=== PATIENT | female | born 2000 | race Caucasian/White ===

== ENCOUNTER 2020-08-04 21:51 | Outpatient (CLI) | payer BC, OTHER ==
[2020-08-04 22:55] LABS: APPEARANCE,URINE CLEAR; BILIRUBIN,URINE NEGATIVE (NEGATIVE); COLOR,URINE STRAW; GLUCOSE, URINE NEGATIVE (NEGATIVE); KETONES,URINE NEGATIVE (NEGATIVE); LEUKOCYTE ESTERASE,URINE NEGATIVE (NEGATIVE); NITRITE,URINE NEGATIVE (NEGATIVE); PROTEIN,URINE NEGATIVE (NEGATIVE); URINE SPECIFIC GRAVITY 1.001; UROBILINOGEN,URINE NEGATIVE mg/dL (<2.0)
[2020-08-04 23:08] LABS: URINE AMPHETAMINES SCREEN NEGATIVE; URINE BARBITURATES SCREEN NEGATIVE; URINE BENZODIAZEPINES SCREEN NEGATIVE; URINE COCAINE SCREEN NEGATIVE; URINE MARIJUANA (THC) SCREEN NEGATIVE; URINE METHADONE SCREEN NEGATIVE; URINE PHENCYCLIDINE SCREEN NEGATIVE
--- NOTE | 2020-08-04 23:28 | Non Stress Test Report ---
Non Stress Test Datetime Report Generated by CPN: 08/04/2020 23:28 DEMOGRAPHIC EGA NST: 36.0 INDICATION Indication for Study (NST) Other: labor check VITAL SIGNS Temperature - NST: 98.0 Pulse - NST: 97 RESP - NST: 16 NBPSYS NST: 111 NBPDIA NST: 67 MONITORING Monitor Explained: Monitor Explained; Test Explained; Patient Verbalized Understanding Time on Monitor: 08/04/2020 22:37 Time off Monitor: 08/04/2020 23:14 NST Duration: 37 NST INTERVENTIONS NST Interventions: None Physician Notified NST: Dr Ton BABY A: [id number] BABY A Movement : Present Contraction Frequency : none FHR Baseline : 135 Accelerations : 15X15 Decelerations : None Variability : Moderate 6-25bpm NST Review: Meets Criteria for Reactive NST NST Review and Verified By : Surinder Escobedo RN NST Results: Reactive NST REPORT Report Trigger: Send Report
== END 2020-08-04 23:21 | disposition home or self-care (01) ==
LOC: EDSTATUS 22:07 → LC 22:09
PROVIDERS: ATTEND Obstetrics & Gynecology
DX: O36.8130 Decreased fetal movements, third trimester, not applicable or unspecified (principal); Z3A.36 36 weeks gestation of pregnancy; Z02.83 Encounter for blood-alcohol and blood-drug test
CPT/HCPCS: 59025; 80307; 81001

== ENCOUNTER 2020-08-27 17:24 | Outpatient (CLI) | payer BC, OTHER ==
--- NOTE | 2020-08-27 18:35 | Non Stress Test Report ---
Non Stress Test Datetime Report Generated by CPN: 08/27/2020 18:34 DEMOGRAPHIC EGA NST: 39.2 INDICATION Indication for Study (NST) Other: IUP at 39.2; Not in labor VITAL SIGNS Temperature - NST: 99.0 Pulse - NST: 71 RESP - NST: 18 NBPSYS NST: 114 NBPDIA NST: 57 MONITORING Monitor Explained: Monitor Explained; Test Explained; Patient Verbalized Understanding Time on Monitor: 08/27/2020 17:39 Time off Monitor: 08/27/2020 18:20 NST Duration: 41 NST INTERVENTIONS NST Interventions: PO Hydration Physician Notified NST: Dr. Fine BABY A: [id number] BABY A Movement : Present Contraction Frequency : 1-5 FHR Baseline : 145 Accelerations : 15X15 Decelerations : None Variability : Moderate 6-25bpm NST Review: Meets Criteria for Reactive NST NST Review and Verified By : JAMES Briones Results: Reactive NST REPORT Report Trigger: Send Report
[2020-08-27 18:49] LABS: APPEARANCE,URINE CLEAR; BILIRUBIN,URINE NEGATIVE (NEGATIVE); COLOR,URINE STRAW; GLUCOSE, URINE NEGATIVE (NEGATIVE); KETONES,URINE NEGATIVE (NEGATIVE); LEUKOCYTE ESTERASE,URINE TRACE (NEGATIVE); NITRITE,URINE NEGATIVE (NEGATIVE); PROTEIN,URINE NEGATIVE (NEGATIVE); URINE SPECIFIC GRAVITY 1.006; UROBILINOGEN,URINE NEGATIVE mg/dL (<2.0)
[2020-08-27 19:24] LABS: URINE AMPHETAMINES SCREEN NEGATIVE; URINE BARBITURATES SCREEN NEGATIVE; URINE BENZODIAZEPINES SCREEN NEGATIVE; URINE COCAINE SCREEN NEGATIVE; URINE MARIJUANA (THC) SCREEN NEGATIVE; URINE METHADONE SCREEN NEGATIVE; URINE PHENCYCLIDINE SCREEN NEGATIVE
== END 2020-08-27 18:32 | disposition home or self-care (01) ==
LOC: LC 17:24
PROVIDERS: ATTEND Obstetrics & Gynecology Gynecology
DX: O47.1 False labor at or after 37 completed weeks of gestation (principal); Z3A.39 39 weeks gestation of pregnancy; Z02.83 Encounter for blood-alcohol and blood-drug test
CPT/HCPCS: 59025; 80307; 81005

== ENCOUNTER 2020-09-04 07:27 | Inpatient (IN) | payer BC, OTHER ==
[2020-09-04] MEDS ORDERED: RINGERS SOLUTION,LACTATED 1,000 ML IV PRN (07:41)
[2020-09-04] MEDS ORDERED: RINGERS SOLUTION,LACTATED 1,000 ML IV ONE (07:41)
[2020-09-04 08:15] LABS: ABSOLUTE EOSINOPHILS # (AUTO) 0.1 10^3/uL (0.0-0.6); ABSOLUTE LYMPHOCYTES (AUTO) 1.6 10^3/uL (0.5-4.7); ABSOLUTE MONOCYTES (AUTO) 0.6 10^3/uL (0.1-1.4); BASOPHILS % (AUTO) 0.8 % (0-2); EOSINOPHILS % (AUTO) 1.1 % (0-6); HEMATOCRIT 27.4 % (36.0-47.0); HEMOGLOBIN 9.2 g/dL (12.0-15.5); LYMPHOCYTES % (AUTO) 25.2 % (13-45); MEAN CORPUSCULAR HEMOGLOBIN 25.1 pg (27.0-33.4); MEAN CORPUSCULAR HGB CONC 33.5 g/dL (32.0-36.0); MEAN CORPUSCULAR VOLUME 75 fl (80-97); MONOCYTES % (AUTO) 10.2 % (3-13); PLATELET COUNT 264 10^3/uL (150-450); RED BLOOD COUNT 3.66 10^6/uL (3.72-5.28); RED CELL DISTRIBUTION WIDTH 15.1 % (11.5-14.0); SEGMENTED NEUTROPHILS % (AUTO) 62.7 % (42-78); TOTAL CELLS COUNTED % (AUTO) 100 %; WHITE BLOOD COUNT 6.4 10^3/uL (4.0-10.5)
--- NOTE | 2020-09-04 08:18 | Admission Physical ---
Datetime Report Generated by CPN: 09/04/2020 08:17 CURRENT ADMISSION Indication for Induction: Postterm Indication for Induction- Other: Elective IOL Admit Impression : Term, Intrauterine Admit Plan: Admit to Unit; Initiate Labor Induction Protocol ALLERGIES Medication Allergies: No Medication Allergies: No Known Allergies (09/04/2020) Latex: No Latex Allergies Food Allergies: mangos Environmental Allergies: n/a OBSTETRICAL HISTORY EDC: 09/01/2020 00:00 : 2 Para: 0 Term: 0 : 0 SAB: 0 IAB: 1 Ectopic: 0 Livin Cesareans: 0 VBACs: 0 Multiple Births: 0 Gestational Diabetes: No Rh Sensitization: No Incompetent Cervix: No ISABELLE: No Infertility: No ART Treatment: No Uterine Anomaly: No IUGR: No Hx Previous C/S: No Macrosomia: No Hx Loss/Stillborn: No PIH: No Hx : No Placenta Previa/Abruption: No Depression/PP Depression: No PTL/PROM: No Post Hemorrhage: No Current Procedures: Ultrasound Obstetrical History Comments: G1-Current SEE RECORDS Alcohol: No Marijuana : No Cocaine: No Other Illicit Drugs: No Cigarettes: Never Smoker. [id number] MEDICAL HISTORY Diabetes: No Blood Transfusion: No Pulmonary Disease (Asthma, TB): No Breast Disease: No Hypertension: No Vice President Of Compliance Surgery: No Heart Disease: No Hosp/Surgery: No Autoimmune Disorder: No Anesthetic Complications: No Kidney Disease: No Abnormal Pap Smear: No Neuro/Epilepsy: No Psychiatric Disorders: No Other Medical Diseases: No Hepatitis/Liver Disease: No Significant Family History: No Varicosities/Phlebitis: No Trauma/Violence : No Thyroid Dysfunction: No Medical History Comments: wisdom teeth 2018, possible TIA at 36 wks, cleared by ED. INFECTIOUS HISTORY Gonorrhea: No Genital Herpes: No Chlamydia: No Tuberculosis: No Syphilis: No Hepatitis: No HIV/AIDS Exposure: No Rash or Viral Illness: No HPV: No PHYSICAL EXAM General: Normal HEENT: Normal Neurologic: Normal Thyroid: Normal Heart: Normal Lungs: Normal Breast: Normal Back: Normal Abdomen: Normal Genitourinary Exam: Normal Extremities: Normal DTRs: Normal Pelvic Type: Adequate Vital Signs: Reviewed MEMBRANES Membranes: Intact FETUS A Monitoring: External US FHR- Baseline: 140 Variability: Moderate 6-25bpm Accelerations: 15X15 Decelerations: None FHR Category: Category I Admit Comment: at 40.4 weeks presents this morning for IOl. Pt states she was 2-3 cm in office on last exam. EFW per u/s over 8 pounds. Pt doing well this morning, no complaints. Unsure if she wants an epidural vs natural labor. GBS negative. Attending MD today is Dr Rogers. Plan to start Pitocin, then AROM w/ active labor. PLANS FOR LABOR AND DELIVERY Labor and Delivery: None Pain Management: Natural; Medications; Epidural Feeding Preference: Breast Benefit of Breast Feed Discussed: Yes Circumcision: N/A INFORMED CONSENT Assignment: Yadira Rogers MD Signature: with User ID: Malu : with User ID: [email or web address]
[2020-09-04] MEDS ORDERED: OXYTOCIN/0.9 % SODIUM CHLORIDE 30 UNIT/500 ML RTUINJ IV PRN ×2 (08:22→17:27)
[2020-09-04 08:24] LABS: APPEARANCE,URINE CLOUDY; BILIRUBIN,URINE NEGATIVE (NEGATIVE); COLOR,URINE YELLOW; GLUCOSE, URINE NEGATIVE (NEGATIVE); KETONES,URINE NEGATIVE (NEGATIVE); LEUKOCYTE ESTERASE,URINE SMALL (NEGATIVE); NITRITE,URINE NEGATIVE (NEGATIVE); PROTEIN,URINE 30 mg/dL (NEGATIVE); UROBILINOGEN,URINE NEGATIVE mg/dL (<2.0)
[2020-09-04 08:33] LABS: URINE AMPHETAMINES SCREEN NEGATIVE; URINE BARBITURATES SCREEN NEGATIVE; URINE BENZODIAZEPINES SCREEN NEGATIVE; URINE COCAINE SCREEN NEGATIVE; URINE MARIJUANA (THC) SCREEN NEGATIVE; URINE METHADONE SCREEN NEGATIVE; URINE PHENCYCLIDINE SCREEN NEGATIVE
[2020-09-04] MEDS ORDERED: OXYTOCIN/0.9 % SODIUM CHLORIDE 30 UNIT/500 ML RTUINJ ONE (08:55)
--- NOTE | 2020-09-04 08:55 | L&D Progress Notes ---
PROGRESS NOTES Datetime Report Generated by CPN: 09/04/2020 08:55 PROGRESS NOTE Impression: Normal Progression of Labor Procedures: Sterile Vag Exam Procedures- Other: Badoo catheter Plan: Continue Present Management; Induction; Cervical Ripening Informed Consent Obtained: Vaginal Delivery; Induction of Labor Vital Signs : Reviewed Comment: cvx 1.5cm/75/-2, vertex. Sacramentos catheter placed and pitocin initiated. Reassuring FWB. Anticipate . LAST VAGINAL EXAM-NURSING Nursing Exam Dilitation: 1.5 Nursing Exam Effacement: 75 Nursing Exam Station: -1 MEMBRANES Membranes: Intact FETUS A FHR - Baseline: 145 Monitoring: External US Variability: Moderate 6-25bpm Accelerations: 15X15 Decelerations: None FHR Category: Category I SIGNATURE SIGNATURE: [id number];[id number];[id number] Signature: with User ID: Florence
[2020-09-04 09:28] LABS: ABSOLUTE RETICS # 0.051 10^6/uL (0.028-0.122); RETICULOCYTE COUNT (AUTO) 1.48 % (0.66-2.85)
[2020-09-04 09:54] LABS: IRON(TIBC) 22.9 ug/dL (37-170)
[2020-09-04] MEDS ORDERED: NALBUPHINE HCL INJ 10 MG/1 ML AMPULE INJ ONE (09:57)
[2020-09-04] MEDS ORDERED: PROMETHAZINE HCL INJ 25 MG/1 ML VIAL IV ONE (09:57)
[2020-09-04] MEDS ORDERED: NALBUPHINE HCL INJ 10 MG/1 ML AMPULE ONE ×2 (09:59→12:31)
[2020-09-04] MEDS ORDERED: PROMETHAZINE HCL INJ 25 MG/1 ML VIAL ONE ×2 (09:59→12:32)
[2020-09-04 10:23] LABS: FERRITIN 6.24 ng/mL (6.2-137.0)
--- NOTE | 2020-09-04 11:46 | L&D Progress Notes ---
PROGRESS NOTES Datetime Report Generated by CPN: 09/04/2020 11:46 PROGRESS NOTE Impression: Reassuring Heart Rate Procedures: Sterile Vag Exam Procedures- Other: Anthony catheter Plan: Induction Informed Consent Obtained: Vaginal Delivery; Induction of Labor Vital Signs : Reviewed; Within Normal Limits Comment: IOL, RN states dorantes bulb fell out, VE /ballotable. Will continue w/ IOL. Pitocin infusing. position changes encouraged LAST VAGINAL EXAM-NURSING Nursing Exam Dilitation: 4.5 Nursing Exam Effacement: 75 Nursing Exam Station: ballotable MEMBRANES Membranes: Intact FETUS A FHR - Baseline: 140 Monitoring: External US Variability: Moderate 6-25bpm Accelerations: 15X15 Decelerations: None FHR Category: Category I SIGNATURE SIGNATURE: [id number];[id number];[id number] Assignment: Yadira Rogers MD Signature: with User ID: [email or web address] : with User ID: [email or web address]
--- NOTE | 2020-09-04 12:47 | L&D Progress Notes ---
PROGRESS NOTES Datetime Report Generated by CPN: 09/04/2020 12:46 PROGRESS NOTE Impression: Normal Progression of Labor; Reassuring Heart Rate Procedures: Artificial ROM; Sterile Vag Exam Procedures- Other: Cooks catheter Plan: Continue Present Management; Induction; Anticipate Vaginal Delivery Informed Consent Obtained: Vaginal Delivery; Induction of Labor Vital Signs : Reviewed; Within Normal Limits Comment: Pt doing well w/ contractions, Pitocin infusing. VE 7/90/0. AROM w/ clear, blood tinged fluid. Pt may have an epidural if she desires. Position changes encouraged. Anticipate VAGINAL EXAM Dilatation: 7 Effacement: 90 Station: 0 Contractions: q2 LAST VAGINAL EXAM-NURSING Nursing Exam Dilitation: 7.0 Nursing Exam Effacement: 90 Nursing Exam Station: 0 MEMBRANES Membranes: Ruptured Amniotic Fluid Color: Clear FETUS A FHR - Baseline: 140 Monitoring: External US Variability: Moderate 6-25bpm Accelerations: 15X15 Decelerations: None FHR Category: Category I SIGNATURE SIGNATURE: [id number];[id number];[id number] Assignment: Yadira Rogers MD Signature: with User ID: Malu : with User ID: [email or web address]
[2020-09-04] MEDS ORDERED: FENTANYL/BUPIVACAINE/NS/PF 300 MCG/150 ML RTUINJ EPI ONE (12:53)
[2020-09-04] MEDS ORDERED: EPHEDRINE SULFATE INJ 50 MG/1 ML AMPULE ONE (12:53)
[2020-09-04] MEDS ORDERED: ROPIVACAINE HCL 0.2% INJ/PF (2 MG/ML) 20 ML SDV ONE (12:53)
[2020-09-04] MEDS ORDERED: MISOPROSTOL 0.2 MG TABLET ONE (12:54)
[2020-09-04] MEDS ORDERED: LIDOCAINE 1% INJ-PF (10 MG/ML) 30 ML SDV ONE (12:59)
[2020-09-04] MEDS ORDERED: LIDOCAINE 2% JELLY 5 ML TUBE ONE (17:11)
[2020-09-04] MEDS ORDERED: MEASLES,MUMPS&RUBELLA VACC/PF 0.5 ML VIAL SUBCUT PRN (17:27)
[2020-09-04] MEDS ORDERED: BENZOCAINE/MENTHOL AEROSOL SPRAY 56 ML TOP PRN (17:27)
[2020-09-04] MEDS ORDERED: PSEUDOEPHEDRINE HCL 30 MG TABLET PO PRN (17:27)
[2020-09-04] MEDS ORDERED: GLYCERIN/WITCH HAZEL LEAF 1 EACH MED..WIPE TP PRN (17:27)
[2020-09-04] MEDS ORDERED: DIBUCAINE 1% OINTMENT 28 GM TP PRN (17:27)
[2020-09-04] MEDS ORDERED: DIPH/PERTUSS(ACELL)/TETANUS VAC/PF 0.5 ML SYR (>=10YO) IM PRN (17:27)
[2020-09-04] MEDS ORDERED: DIPHENHYDRAMINE HCL 25 MG CAPSULE PO PRN (17:27)
[2020-09-04] MEDS ORDERED: NA PHOS,M-B/NA PHOS,DI-BA (ADULT) 133 ML ENEMA PR PRN (17:27)
[2020-09-04] MEDS ORDERED: PROMETHAZINE HCL 25 MG SUPP.RECT PR PRN (17:27)
[2020-09-04] MEDS ORDERED: ZOLPIDEM TARTRATE 5 MG TABLET PO PRN (17:27)
[2020-09-04] MEDS ORDERED: ACETAMINOPHEN WITH CODEINE #3 TABLET PO PRN ×2 (17:27)
[2020-09-04] MEDS ORDERED: ACETAMINOPHEN 325 MG TABLET PO PRN (17:27)
[2020-09-04] MEDS ORDERED: MAGNESIUM HYDROXIDE SUSP 30 ML UDCUP PO PRN (17:27)
[2020-09-04] MEDS ORDERED: PROMETHAZINE HCL 25 MG TABLET PO PRN (17:27)
[2020-09-04] MEDS ORDERED: PROMETHAZINE HCL INJ 25 MG/1 ML VIAL IV PRN (17:27)
[2020-09-04] MEDS ORDERED: FERROUS SULFATE 325 MG TABLET PO SCH (18:00)
[2020-09-04] MEDS ORDERED: IBUPROFEN 800 MG TABLET ONE (18:49)
[2020-09-04] MEDS ORDERED: BENZOCAINE/MENTHOL AEROSOL SPRAY 56 ML ONE (18:49)
--- NOTE | 2020-09-04 19:34 | Birth Certificate Data ---
Cert Data Datetime Report Generated by CPN: 09/04/2020 19:34 CERTIFICATE DATA 47a. Care: Yes (08/04/2020 22:16:Alexey De Anda RN) 48a. Number of Prev Live Births: 0 (08/04/2020 22:16:Alexey De Anda RN) 48b. Now Livin (08/04/2020 22:16:Alexey De Anda RN) 48c. Live Births Now : 0 (08/04/2020 22:16:QS system process) 48e. Losses: 0 (08/04/2020 22:16:Alexey De Anda RN) RISK FACTORS IN THIS 49a. Diabetes: No (08/04/2020 22:16:Alexey De Anda RN) 49b. Hypertension: No (08/04/2020 22:16:Alexey De Anda RN) 49c. Previous Births: 0 (08/04/2020 22:16:Alexey De Anda RN) 49d. Stillborns: No (08/04/2020 22:16:Alexey De Anda RN) 49d. IUGR: No (08/04/2020 22:16:Alexey De Anda RN) 49e. Infertility Treatment: No (08/04/2020 22:16:Alexey De Anda RN) 49f. Previous Cesareans: 0 (08/04/2020 22:16:Alexey De Anda RN) Mother's Height 50b. Height Inches: 63 (09/04/2020 18:12:QS system process) Mother's Weight 51a. Pre- Weight (lbs): 144 (08/04/2020 22:16:Anita Pathak RN) 51b. Weight at Delivery (lbs): 174 (09/04/2020 18:12:QS system process) 52. Dt Last Normal Menses Began: 11/13/2019 00:00 (08/04/2020 22:16:Anita Pathak RN) Infections Present/Treated 53a. Gonorrhea: No (08/04/2020 22:16:Alexey De Anda RN) Results this Hospital Visit : Negative (08/04/2020 22:16:Anita Pathak RN) 53b. Syphilis: No (08/04/2020 22:16:Alexey De Anda RN) Results this Hospital Visit: NONREACTIVE (09/04/2020 08:04:QS system process) 53c. Chlamydia: No (08/04/2020 22:16:Alexey De Anda RN) Results this Hospital Visit: Negative (08/04/2020 22:16:Anita Pathak RN) 53d. Hepatitis B: No (08/04/2020 22:16:Alexey De Anda RN) Results this Hospital Visit: Negative (08/04/2020 22:16:Alexey De Anda RN) 53e. Hepatitis C: Negative (08/04/2020 22:16:Anita Pathak RN) 53h. Mother Tested for HBsAG: Yes (08/04/2020 22:16:Anita Pathak RN) 53i. Date Tested: 01/09/2020 00:00 (08/04/2020 22:16:Anita Pathak, RN) 53j. Test Result: Negative (08/04/2020 22:16:Alexey De Anda, RN) Obstetric Procedures 54a, b, c. Obstetric Procedures: Ultrasound (08/04/2020 22:16:Anita Pathak, RN) Cigarette Smoking Cigarette Smoking: Never Smoker. [id number] (08/04/2020 22:16:Alexey De Anda, RN) Onset of Labor 56a. PROM >12 Hrs: 4.73 (08/04/2020 22:16:QS system process) 56b. Precipitous Labor <3 Hrs: 5 (08/04/2020 22:16:QS system process) 56c. Prolonged Labor > 20 Hrs: 5 (08/04/2020 22:16:QS system process) 57a. Induction of Labor: Induction (08/04/2020 22:16:Marika Chi RN) 57c. Non-Vertex Presentation A: Vertex (08/04/2020 22:16:Marika Chi RN) 57d. Steroids - Lung Mat: None (08/04/2020 22:16:Anita Pathak RN) 57d. Steroids - Lung Mat: Not Applicable (08/04/2020 22:16:Anita Pathak RN) 57g. Moderate/Heavy Meconium: Clear (09/04/2020 12:39:Anita Pathak RN) 57h. Intolerance of Labor: N/A (08/04/2020 22:16:Marika Chi RN) : N/A (08/04/2020 22:16:Marika Chi RN) 57i. Epidural/Spinal Anesthesia: Epidural (08/04/2020 22:16:Marika Chi RN) Method of Delivery 58a. Forceps - Unsuccessful A: N/A (08/04/2020 22:16:Marika JAMES Chi) 58b. Vacuum - Unsuccessful A: N/A (08/04/2020 22:16:Marika Chi RN) 58c. Presentation at 58c. Presentation at - A : Vertex (08/04/2020 22:16:Marika Chi RN) 58c. Presentation at - A : N/A (08/04/2020 22:16:Anita Pathak RN) 58c. Presentation at - A : Cephalic (09/04/2020 11:35:Anita Pathak RN) Final Route and Method of Del 58d. Baby A Route/Delivery: Vaginal (09/04/2020 17:23:Marika Chi RN) 58e. Trial of Labor Attempted: No (08/04/2020 22:16:Anita Pathak RN) 58e. Trial of Labor Attempted A: N/A (08/04/2020 22:16:Anita Pathak RN) 58e. Trial of Labor Attempted B: N/A (08/04/2020 22:16:Anita Pathak RN) Maternal Morbidity 59b. 3rd or 4th Degree Lacs: Periurethral (08/04/2020 22:16:Marika Chi RN) 59b. 3rd or 4th Degree Lacs: First Degree (08/04/2020 22:16:Marika Chi RN) 59b. 3rd or 4th Degree Lacs: left labial abrasion on vulvar area, hemostatic. (08/04/2020 22:16:Julianna Linder CNM) Birthweight Baby A: 4249 (08/04/2020 22:16:Anita Pathak RN) 60a. Pounds : 9 (08/04/2020 22:16:QS system process) 60b. Ounces: 6 (08/04/2020 22:16:QS system process) 61. GA at Delivery Baby A: 40.3 (08/04/2020 22:16:Anita Pathak RN) : Full Term- 39- 40.6 Weeks (08/04/2020 22:16:QS system process) 62a. 5 Minute Baby A: 8 (08/04/2020 22:16:QS system process) 62b. 10 Minute Baby A: 9 (08/04/2020 22:16:QS system process)
--- NOTE | 2020-09-04 19:34 | Delivery Summary ---
Del Sum A-C Datetime Report Generated by CPN: 09/04/2020 19:34 DELIVERY PERSONNEL DELIVERY PERSONNEL: [id number] Delivery Doctor:: Julianna Linder CNM Labor and Delivery Nurse:: Anita Pathak RN Nursery Nurse:: Concetta Rice RN Nursery Nurse:: Lulu Sanchez RN Animal Physiology Teacher/COURT TRANSCRIBER: Julianne Sierra, ST Additional Personnel: : Marika Chi RN MATERNAL INFORMATION Delivery Anesthesia: Epidural Medications After Delivery: Pitocin 30 Units in 500ml NS/D5W Delivery QBL: 500 Maternal Complications: None Provider Comments: of VFI, delivered ISAAC, NC x 1, loose but unable to reduce. Anterior shoulder easily delivered. Baby placed on pts abdoman in stable condition, bulb suctioned and dryed. Cord clamped and cut after one minute. Cord blood collected. Placenta S/C/I, large amount of blood behind placenta once it delivered. FF w/ decreased lochia, IV Pitocin infusing. Perineum intact. Apgars pending per NBN RN. QBL 500. Bloodloss associated w/ placental delivery, then uterus firmed right up. Pt plans to breastfeed. Baby to NBN to transition there. Attending MD is Dr Rogers. LABOR SUMMARY EDC: 09/01/2020 00:00 No. Babies in Womb: 1 Attempted: No Labor Anesthesia: Epidural LABOR INFORMATION Reason for Induction: Post Dates Onset of Labor: 09/04/2020 11:35 Complete Dilatation: 09/04/2020 16:27 Oxytocin: Induction Group B Beta Strep: Negative Antibiotics # of Doses: 0 Name of Antibiotic Given: n/a Steroids Given: None Reason Steroids Not Administered: Not Applicable MEMBRANES Membranes Rupture Method: Artificial Rupture of Membranes: 09/04/2020 12:39 Length of Rupture (hr): 4.73 Amniotic Fluid Color: Clear Amniotic Fluid Amount: Moderate Amniotic Fluid Odor: Normal STAGES OF LABOR Stage 1 hr: 4 Stage 1 min: 52 Stage 2 hr: 0 Stage 2 min: 56 Stage 3 hr: 0 Stage 3 min: 4 Total Time in Labor hr: 5 Total Time in Labor min: 52 VAGINAL DELIVERY Episiotomy: None Laceration #1: Periurethral Laceration Extension #1: First Degree Other Laceration: left labial abrasion on vulvar area, hemostatic. Laceration Repair: Yes Laceration Repair Note: periurethral tear numbed up w/ 1 % lidocaine then 2 stitches placed w/ 3.0 vicryl on SH needle. Pt tolerated well. Sponge Count Correct: Yes Sharps Count Correct: Yes CSECTION DELIVERY Primary Indication: N/A Secondary Indication: N/A CSection Incidence: N/A Labor: N/A Elective: N/A CSection Incision: N/A BABY A INFORMATION Infant Delivery Date/Time: 09/04/2020 17:23 Method of Delivery: Vaginal Nurse Controlled Delivery: No Born in Route : No : N/A Forceps: N/A Vacuum Extraction: N/A Shoulder Dystocia : No PRESENTATION/POSITION BABY A Presentation: Cephalic Cephalic Presentation: Vertex Vertex Position: Left Occipital Anterior Breech Presentation: N/A PLACENTA INFORMATION BABY A Placenta Delivery Time : 09/04/2020 17:27 Placenta Method of Delivery: Spontaneous Placenta Status: Delivered SCORES BABY A Heart Rate 1 min: >100 bpm Resp Effort 1 min: Slow, Irregular Reflex Irritability 1 min: Cough or Sneeze or Pulls Away Muscle Tone 1 min: Active Motion Color 1 min: Blue/Pale SCORE 1 MIN: 7 Heart Rate 5 min: >100 bpm Resp Effort 5 min: Slow, Irregular Reflex Irritability 5 min: Cough or Sneeze or Pulls Away Muscle Tone 5 min: Active Motion Color 5 min: Body [place], Extremities Blue SCORE 5 MIN: 8 Heart Rate 10 min: >100 bpm Resp Effort 10 min: Good Cry Reflex Irritability 10 min: Cough or Sneeze or Pulls Away Muscle Tone 10 min: Active Motion Color 10 min: Body [place], Extremities Blue Resuscitation Effort 10 min: Tactile Stimulation; Oxygen; PPV/NCPAP SCORE 10 MIN: 9 INFORMATION BABY A Gestational Age at Delivery: 40.3 Gestational Status: Full Term- 39- 40.6 Weeks Outcome : Liveborn Infant Condition : Stable Infant Sex: Female IDENTIFICATION BABY A Verification Date/Time: 09/04/2020 17:50 ID Band Number: [id number] Mother's Name Verified: Yes Infant RN Verifying Infant: Cindy Lawson RN Additional Verifying Personnel: Emely Chi RN WEIGHT/LENGTH BABY A Infant Birthweight (gm): 4249 Infant Weight (lb): 9 Weight (oz): 6 Infant Length (in): 22.50 Infant Length (cm): 57.15 CORD INFORMATION BABY A No. Cord Vessels: 3 Nuchal Cord : Around Neck x1, Loose Cord Blood Taken: Yes-For Storage (Mom's Blood type +) Suction: Mouth; Nose ASSESSMENT BABY A Complications: Multiple Variable Decels Skin to Skin: Yes Skin to Skin Time (min): 90 BABY B INFORMATION : N/A SIGNATURES Assignment: Yadira Rogers MD Signature: with User ID: Malu : with User ID: Malu
[2020-09-04] MEDS: FAMOTIDINE 20 MG TABLET PO SCH (21:57)
[2020-09-04] MEDS: IBUPROFEN 800 MG TABLET PO SCH (22:00)
[2020-09-05] MEDS: FERROUS SULFATE 325 MG TABLET PO SCH ×3 (00:31→19:05)
[2020-09-05] MEDS: IBUPROFEN 800 MG TABLET PO SCH ×2 (05:14→14:52)
[2020-09-05 06:07] LABS: HEMATOCRIT 23.4 % (36.0-47.0); MEAN CORPUSCULAR HEMOGLOBIN 24.8 pg (27.0-33.4); MEAN CORPUSCULAR HGB CONC 32.5 g/dL (32.0-36.0); MEAN CORPUSCULAR VOLUME 77 fl (80-97); PLATELET COUNT 255 10^3/uL (150-450); RED BLOOD COUNT 3.06 10^6/uL (3.72-5.28); RED CELL DISTRIBUTION WIDTH 15.3 % (11.5-14.0); WHITE BLOOD COUNT 11.7 10^3/uL (4.0-10.5)
[2020-09-05 06:09] LABS: HEMOGLOBIN 7.6 g/dL (12.0-15.5)
[2020-09-05] MEDS ORDERED: SENNOSIDES/DOCUSATE 8.6-50 MG 1 EACH TABLET PO SCH (10:00)
[2020-09-05] MEDS ORDERED: PRENATAL VITAMIN W DHA CAPSULE PO SCH (10:00)
--- NOTE | 2020-09-05 10:17 | PDOC PROGRESS REPORT ---
Subjective-OB Progress Note for:: 09/05/20 - PP day #1, doing well, denies dizziness or SOB w/ ambulation.Denies further heavy vaginal bleeding this morning. Discussed low hgb, pt declines rec'ing blood products. Will give IV iron prior to discharge home today. O+, rubella immune, Physical Exam (OB) Vital Signs: Temp Pulse Resp BP Pulse Ox 98.0 F 83 18 111/66 100 09/05/20 07:41 09/05/20 07:41 09/05/20 07:41 09/05/20 07:41 09/05/20 07:41 Intake & Output 09/04/20 09/05/20 09/06/20 06:59 06:59 06:59 Intake Total 500 Output Total 1050 500 Balance -550 -500 Weight 79.2 kg - General General Appearance: Appears well, Alert In distress: None - PIH/Pre-Eclampsia DTR's: 2 + Clonus: Negative Headache: Absent Epigastric Pain: No Visual Changes: No - Maternal Morbidity 59. Maternal Morbidity (serious complications experinced by the mother associated with labor and delivery: None of the above - Lochia Lochia Amount: Scant < 10 ml Lochia Color: Rubra/Red - Abdomen Description: Soft Hernia Present: No Fundal Description: Firm, Midline Fundal Height: u/u - u/2 - Respiratory Respiratory Status: No respiratory distress - Abdominal Distension: No distension Tenderness: Nontender - Genitourinary Genitourinary Note: voiding - Extremities Upper extremity: Normal inspection Lower extremities: Normal inspection - Neurological Cognition: Normal Orientation: AAOx4 - Psychological Associated symptoms: Normal affect, Normal mood - Skin Skin Temperature: Warm Skin Moisture: Dry Objective-Diagnostic Laboratory: 09/05/20 05:19 09/04/20 09/05/20 08:58 05:19 WBC 11.7 H RBC 3.06 L Hgb 7.6 L Hct 23.4 L MCV 77 L MCH 24.8 L MCHC 32.5 RDW 15.3 H Plt Count 255 Iron 22.9 L TIBC 548 H % Saturation 4 Ferritin 6.24 Vitamin B12 197.0 L Folate 11.10 Assessment and Plan(PN) - Assessment and Plan (1) Acute blood loss anemia Is this a current diagnosis for this admission?: Yes (2) Anemia affecting Qualifiers: Trimester: third trimester Qualified Code(s): O99.013 - Anemia complicating , third trimester Is this a current diagnosis for this admission?: Yes (3) Elective induction of labor planned Is this a current diagnosis for this admission?: Yes (4) Periurethral laceration, delivered, current hospitalization Is this a current diagnosis for this admission?: Yes (5) Vaginal delivery Is this a current diagnosis for this admission?: Yes Plan:: Will give IV iron this morning, then may discharge home later on tonight after 24 hr PP stay. As long as baby can go home - Time Spent with Patient Time with patient: Less than 15 minutes Medications reviewed and adjusted accordingly: Yes - Disposition Anticipated Discharge Disposition: Home, Self Care Anticipated Discharge Timeframe: within 24 hours
[2020-09-05] MEDS: DOCUSATE SODIUM 100 MG CAPSULE PO SCH ×3 (10:36→19:05)
[2020-09-05] MEDS: FAMOTIDINE 20 MG TABLET PO SCH (10:37)
[2020-09-05] MEDS ORDERED: IRON SUCROSE COMPLEX INJ/PF 100 MG/5 ML SDV IV ONE ×2 (11:00→15:00)
[2020-09-05 20:57] VITALS: BP 126/65
--- NOTE | 2020-09-22 10:19 | PDOC DISCHARGE SUMMARY ---
Impression - Admit/DC Date/PCP Admission Date/Primary Care Provider: 09/04/20 07:27 CHANO RILEY MD Discharge Date: 09/05/20 - PP Day #1, pt desires to go home this evening - Discharge Diagnosis (1) Acute blood loss anemia Is this a current diagnosis for this admission?: Yes (2) Anemia affecting Is this a current diagnosis for this admission?: Yes (3) Elective induction of labor planned Is this a current diagnosis for this admission?: Yes (4) Periurethral laceration, delivered, current hospitalization Is this a current diagnosis for this admission?: Yes (5) Vaginal delivery Is this a current diagnosis for this admission?: Yes - Additional Information Discharge Diet: Regular Discharge Activity: Activity As Tolerated, Balance Activity w/Rest, No Lifting Over 10 Pounds, No Lifting/Push/Pulling, Pelvic Rest, Slowly Increase Activity, No tub bath Referrals: CHANO RILEY MD [Primary Care Provider] - Prescriptions: Ferrous Sulfate [Feosol 325 mg Tablet] 325 mg PO BID #60 tablet Ibuprofen [Motrin 800 mg Tablet] 800 mg PO Q8 #60 tablet Home Medications: Prenat 115/Iron Fum/Folic/Dss [ 19 Tablet] 1 each PO DAILY 08/04/20 Ferrous Sulfate [Feosol 325 mg Tablet] 325 mg PO BID #60 tablet 09/05/20 Ibuprofen [Motrin 800 mg Tablet] 800 mg PO Q8 #60 tablet 09/05/20 HPI Reason(s) for Admission: Induction of Labor Procedures: Ultrasound Intrapartum Procedure(s): Spontaneous Vaginal Delivery Complication(s): Hemorrhage-Uterine Atony Hospital Course 59. Maternal Morbidity (serious complications experinced by the mother associated with labor and delivery: None of the above Results Laboratory Results: WBC 11.7 10^3/uL (4.0-10.5) H 09/05/20 05:19 RBC 3.06 10^6/uL (3.72-5.28) L 09/05/20 05:19 Hgb 7.6 g/dL (12.0-15.5) L 09/05/20 05:19 Hct 23.4 % (36.0-47.0) L 09/05/20 05:19 MCV 77 fl (80-97) L 09/05/20 05:19 MCH 24.8 pg (27.0-33.4) L 09/05/20 05:19 MCHC 32.5 g/dL (32.0-36.0) 09/05/20 05:19 RDW 15.3 % (11.5-14.0) H 09/05/20 05:19 Plt Count 255 10^3/uL (150-450) 09/05/20 05:19 Lymph % (Auto) 25.2 % (13-45) 09/04/20 08:04 [place] % (Auto) 10.2 % (3-13) 09/04/20 08:04 Eos % (Auto) 1.1 % (0-6) 09/04/20 08:04 Baso % (Auto) 0.8 % (0-2) 09/04/20 08:04 Reticulocyte # 0.051 10^6/uL (0.028-0.122) 09/04/20 08:58 Absolute Neuts (auto) 4.0 10^3/uL (1.7-8.2) 09/04/20 08:04 Absolute Lymphs (auto) 1.6 10^3/uL (0.5-4.7) 09/04/20 08:04 Absolute Monos (auto) 0.6 10^3/uL (0.1-1.4) 09/04/20 08:04 Absolute Eos (auto) 0.1 10^3/uL (0.0-0.6) 09/04/20 08:04 Absolute Basos (auto) 0.0 10^3/uL (0.0-0.2) 09/04/20 08:04 Seg Neutrophils % 62.7 % (42-78) 09/04/20 08:04 Retic Count (auto) 1.48 % (0.66-2.85) 09/04/20 08:58 Iron 22.9 ug/dL (37-170) L 09/04/20 08:58 TIBC 548 ug/dL (250-450) H 09/04/20 08:58 % Saturation 4 % 09/04/20 08:58 Ferritin 6.24 ng/mL (6.2-137.0) 09/04/20 08:58 Vitamin B12 197.0 pg/mL (239-931) L 09/04/20 08:58 Folate 11.10 ng/mL (>2.76) 09/04/20 08:58 Urine Color YELLOW 09/04/20 07:42 Urine Appearance CLOUDY 09/04/20 07:42 Urine pH 6.0 (5.0-9.0) 09/04/20 07:42 Ur Specific [place] 1.020 09/04/20 07:42 Urine Protein 30 mg/dL (NEGATIVE) H 09/04/20 07:42 Urine Glucose (UA) NEGATIVE mg/dL (NEGATIVE) 09/04/20 07:42 Urine Ketones NEGATIVE mg/dL (NEGATIVE) 09/04/20 07:42 Urine Blood NEGATIVE (NEGATIVE) 09/04/20 07:42 Urine Nitrite NEGATIVE (NEGATIVE) 09/04/20 07:42 Urine Bilirubin NEGATIVE (NEGATIVE) 09/04/20 07:42 Urine Urobilinogen NEGATIVE mg/dL (<2.0) 09/04/20 07:42 Ur Leukocyte Esterase SMALL (NEGATIVE) H 09/04/20 07:42 Urine Ascorbic Acid NEGATIVE (NEGATIVE) 09/04/20 07:42 Urine Opiates Screen NEGATIVE 09/04/20 07:42 Urine Methadone Screen NEGATIVE 09/04/20 07:42 Ur Barbiturates Screen NEGATIVE 09/04/20 07:42 Ur Phencyclidine Scrn NEGATIVE 09/04/20 07:42 Ur Amphetamines Screen NEGATIVE 09/04/20 07:42 U Benzodiazepines Scrn NEGATIVE 09/04/20 07:42 Urine Cocaine Screen NEGATIVE 09/04/20 07:42 U Marijuana (THC) Screen NEGATIVE 09/04/20 07:42 RPR NONREACTIVE (NONREACTIVE) 09/04/20 08:04 Blood Type O POSITIVE 09/04/20 08:04 Blood Type Confirm O POSITIVE 09/04/20 08:58 Antibody Screen NEGATIVE 09/04/20 08:04 Crossmatch See Detail 09/04/20 08:04 Plan Health Concerns: iron rich foods Plan of Treatment: d/c home this evening Time Spent: Less than 30 Minutes
== END 2020-09-05 21:25 | disposition home or self-care (01) | DRG 806 ==
LOC: LR 07:27 → 2S 20:28
PROVIDERS: ADMIT Student in an Organized Health Care Education/Training Program; ATTEND Student in an Organized Health Care Education/Training Program
PROC: 10E0XZZ Delivery of Products of Conception, External Approach (ICD-10-PCS; principal; 2020-09-04)
PROC: 0UQMXZZ Repair Vulva, External Approach (ICD-10-PCS; 2020-09-04)
PROC: 3E033VJ Introduction of Other Hormone into Peripheral Vein, Percutaneous Approach (ICD-10-PCS; 2020-09-04)
PROC: 10907ZC Drainage of Amniotic Fluid, Therapeutic from Products of Conception, Via Natural or Artificial Opening (ICD-10-PCS; 2020-09-04)
DX: O48.0 Post-term pregnancy (principal); D62 Acute posthemorrhagic anemia; Z37.0 Single live birth; O90.81 Anemia of the puerperium; O71.82 Other specified trauma to perineum and vulva; O69.81X0 Labor and delivery complicated by cord around neck, without compression, not applicable or unspecified; Z3A.40 40 weeks gestation of pregnancy; Z91.018 Allergy to other foods
CPT/HCPCS: 1967; 36415; 80307; 81005; 82607; 82728; 82746; 83540; 83550; 85025; 85027; 85045; 86592; 86850; 86900; 86901; 86920; J1756; J2300; J2550; J2590; J2795; J3010; J3490